=== PATIENT | female | born 1955 | race Native Hawaiian/Other Pacific Islander ===

== ENCOUNTER 2022-12-07 14:59 | Outpatient (CLI) | payer OTHER ==
[~2022-12-07] VITALS: Ht 162.6 cm; Wt 66.2 kg
[2022-12-07 15:20] VITALS: BP 116/54; TEMP 98.3
[2022-12-07 16:06] VITALS: BP 111/54; TEMP 98.3
== END 2022-12-07 21:25 | disposition home or self-care (01) ==
LOC: INF 14:59
PROVIDERS: ATTEND Internal Medicine
DX: M81.0 Age-related osteoporosis without current pathological fracture (principal)
CPT/HCPCS: 36415; 82310; 96372; J0897

== ENCOUNTER 2023-12-09 11:05 | Outpatient (CLI) | payer OTHER ==
[~2023-12-09] VITALS: Ht 165.1 cm; Wt 63.5 kg
[2023-12-09] MEDS ORDERED: DENOSUMAB 60 MG SC ONE (12:00)
== END 2023-12-09 22:21 | disposition home or self-care (01) ==
LOC: INF 11:05
PROVIDERS: ATTEND Internal Medicine
DX: M81.0 Age-related osteoporosis without current pathological fracture (principal)
CPT/HCPCS: 36415; 82310; 96372; J0897